=== PATIENT | female | born 1970 | race Two or more races ===

== ENCOUNTER 2022-05-08 21:48 | Emergency (ER) | payer MEDICAID ==
[~2022-05-08] VITALS: Ht 160 cm; Wt 117.9 kg
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
[2022-05-08] MEDS ORDERED: IBUPROFEN 400 MG TABLET ONE (22:13)
--- NOTE | 2022-05-08 22:14 | NUR ---
PT TAKEN TO CT VIA ROD
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
--- NOTE | 2022-05-08 22:27 | NUR ---
PT RETURNED TO ER BED [address]
[2022-05-08] MEDS ORDERED: IBUPROFEN 400 MG TABLET PO ONE (22:30)
--- NOTE | 2022-05-08 22:56 | NUR ---
Patient discharged to home in stable condition. Written and verbal after care instructions given. Patient verbalizes understanding of instruction.
[2022-05-08 22:57] VITALS: BP 120/71
== END 2022-05-08 22:56 | disposition home or self-care (01) ==
LOC: ER 21:52
DX: S39.012A Strain of muscle, fascia and tendon of lower back, initial encounter (principal); S16.1XXA Strain of muscle, fascia and tendon at neck level, initial encounter; S20.211A Contusion of right front wall of thorax, initial encounter; S09.8XXA Other specified injuries of head, initial encounter; I10 Essential (primary) hypertension; I48.91 Unspecified atrial fibrillation; E11.9 Type 2 diabetes mellitus without complications; V89.2XXA Person injured in unspecified motor-vehicle accident, traffic, initial encounter; W22.12XA Striking against or struck by front passenger side automobile airbag, initial encounter; Y93.89 Activity, other specified; Y92.89 Other specified places as the place of occurrence of the external cause; Y99.8 Other external cause status
CPT/HCPCS: 99284; 72125; 71045; 70450; 72131; L0172